=== PATIENT | male | born 1945 | race Two or more races ===

== ENCOUNTER 2019-09-02 10:14 | Day surgery (SDC) | payer MEDICARE, BC ==
[2019-09-02] VITALS (12 sets, daily range): BP systolic 110–150; BP diastolic 55–70
[~2019-09-02] VITALS: Ht 160 cm; Wt 88.5 kg
[2019-09-02] MEDS ORDERED: MIDAZolam 1mg/ml 10ml vial IV ONE (10:40)
[2019-09-02] MEDS ORDERED: fentaNYL/PF 50MCG/1 ML 2ML syringe IV ONE (10:40)
[2019-09-02] MEDS ORDERED: normal saline 1000ml 1,000 ML IV SCH (10:40)
[2019-09-02] MEDS ORDERED: LANTUS SQ (10:57)
[2019-09-02] MEDS ORDERED: LISI-600 PO (10:57)
[2019-09-02] MEDS ORDERED: SIMV-42 PO (10:57)
[2019-09-02] MEDS ORDERED: METO-539 PO (10:57)
[2019-09-02] MEDS ORDERED: APIX5TAB3 PO (10:57)
[2019-09-02] MEDS ORDERED: INSU100V46 (10:57)
[2019-09-02] MEDS ORDERED: CHL4T (10:57)
[2019-09-02] MEDS ORDERED: METF500T PO (10:57)
[2019-09-02] MEDS ORDERED: PRAZ5CAP PO (10:57)
[2019-09-02] MEDS ORDERED: FLO0.4C PO (10:57)
[2019-09-02] MEDS ORDERED: FAMO20TA8 PO (10:57)
== END 2019-09-02 13:15 | disposition home or self-care (01) ==
LOC: SSTAY O 10:14
PROVIDERS: ATTEND Internal Medicine Interventional Cardiology
DX: I48.91 Unspecified atrial fibrillation (principal); I10 Essential (primary) hypertension; E78.5 Hyperlipidemia, unspecified; E11.59 Type 2 diabetes mellitus with other circulatory complications; Z79.899 Other long term (current) drug therapy; Z79.4 Long term (current) use of insulin; Z98.890 Other specified postprocedural states; Z80.0 Family history of malignant neoplasm of digestive organs; Z88.0 Allergy status to penicillin
CPT/HCPCS: 82948; 92960; 93005; 94760

== ENCOUNTER 2020-08-30 13:19 | Outpatient (CLI) | payer MEDICARE, BC ==
[~2020-08-30 13:19] MED LIST: APIX5TAB3 PO; CHL4T; FAMO20TA8 PO; FLO0.4C PO; INSU100V46; LANTUS SQ; LISI20TA28 PO; METF500T PO; METO-539 PO; PRAZ5CAP PO; SIMV-42 PO
== END 2020-08-30 23:59 | disposition home or self-care (01) ==
LOC: VAS 13:19
PROVIDERS: ATTEND Orthopaedic Surgery
DX: S83.231A Complex tear of medial meniscus, current injury, right knee, initial encounter (principal); S83.271A Complex tear of lateral meniscus, current injury, right knee, initial encounter; M71.21 Synovial cyst of popliteal space [Baker], right knee; X58.XXXA Exposure to other specified factors, initial encounter; Y93.89 Activity, other specified; Y92.89 Other specified places as the place of occurrence of the external cause; Y99.8 Other external cause status
CPT/HCPCS: 93971

== ENCOUNTER 2025-02-12 10:23 | Day surgery (SDC) | payer MEDICARE, BC ==
[~2025-02-12] VITALS: Ht 160 cm; Wt 80.7 kg
[~2025-02-12 10:23] MED LIST changes: -APIX5TAB3 PO; +ASPI-611 PO; +ATOR40TA71 PO; -CHL4T; +EMPA1TAB7; -FAMO20TA8 PO; -FLO0.4C PO; -INSU100V46; +MECO10005 PO; -METF500T PO; +PRAZ2CAP2 PO; +RIVA20TA PO; -SIMV-42 PO; +TAMS-55 PO
[2025-02-12] MEDS ORDERED: normal saline 1000ml 1,000 ML IV SCH (11:00)
[2025-02-12] MEDS ORDERED: fentaNYL/PF 50MCG/1 ML 2ML syringe IV ONE (11:00)
[2025-02-12] MEDS ORDERED: MIDAZolam 1mg/ml 10ml vial IV ONE (11:00)
[2025-02-12 11:15] VITALS: BP 143/68; PULSE 71; RESP 16; TEMP 98.6; O2SAT 96
[2025-02-12 11:31] LABS: MEAN PLATELET VOLUME 7.9 FL (7.4-10.4); RED CELL DISTRIBUTION WIDTH 15.3 % (11.5-14.5)
[2025-02-12 11:41] LABS: APTT 35 SECONDS (22-32); INR 1.2 INR
[2025-02-12 11:49] LABS: CREATININE 0.98 MG/DL (0.60-1.10); TOTAL CARBON DIOXIDE 26.9 MMOL/L (24-32); eCRCL 50 ML/MIN; eGFR 74 ML/MIN
[2025-02-12] MEDS ORDERED: fentaNYL/PF 50MCG/1 ML 2ML syringe ONE (12:19)
[2025-02-12] MEDS ORDERED: midazolam 1 mg/ML 2ml injection ONE (12:19)
[2025-02-12 14:30] VITALS: BP 145/79; PULSE 61; RESP 16; O2SAT 96
[2025-02-12 14:46] VITALS: BP 143/69; PULSE 51; RESP 16; O2SAT 97
[2025-02-12 14:55] VITALS: BP 151/89; PULSE 65; RESP 16; O2SAT 97
--- NOTE | 2025-02-13 10:41 | CARDIOLOGY REPORT ---
APPROVED REPORT EXAM: Focused, limited transesophageal echocardiogram with color flow Doppler Patient Location: [facility] Blood Pressure: 189/93 mmHg Heart Rate: 91 bpm Rhythm: NSR Indications POST WATCHMAN FLX SHAI CLOSURE DEVICE IMPLANTATION FOLLOW UP EVALUATE DEVICE FOR THROMBUS, POSITION, AND SEAL 27 mm WATCHMAN FLX SHAI CLOSURE DEVICE Development Writer is Shahram Sheth MD Previous echo 12/26/24 [facility] 70% EF ; LA appears severely dilated ilntact interatrial septum with (smal l) L to R shunt s/p transseptal puncture by color and spectral Doppler. LEFT VENTRICLE LV appears normal in size and thickness. Overall systolic function appears normal. LVEF is 65-70%. RIGHT VENTRICLE RV appears mildly dilated with normal contractility. ATRIA LA appears severely dilated. Intact interatrial septum with (trivial) L to R shunt s/p transseptal pu ncture by color and spectral Doppler. GREAT VESSELS Descending aorta is normal in caliber. PERICARDIUM There is no pericardial effusion. CONCLUSION LV appears normal in size and thickness. Overall systolic function appears normal. LVEF is 65-70%. RV appears mildly dilated with normal contractility. LA appears severely dilated. Intact interatrial se ptum with (trivial) L to R shunt s/p transseptal puncture by color and spectral Doppler. There is no pericardial effusion. Conclusion LV appears normal in size and thickness. Overall systolic function appears normal. LVEF is 65-70%. RV appears mildly dilated with normal contractility. LA appears severely dilated. Intact interatrial septum with (trivial) L to R shunt s/p transseptal pu ncture by color and spectral Doppler. There is no pericardial effusion.
== END 2025-02-12 15:00 | disposition home or self-care (01) ==
LOC: SSTAY O 10:23
PROVIDERS: ATTEND Student in an Organized Health Care Education/Training Program
DX: I48.91 Unspecified atrial fibrillation (principal); I10 Essential (primary) hypertension; E78.5 Hyperlipidemia, unspecified; E11.9 Type 2 diabetes mellitus without complications; Z86.73 Personal history of transient ischemic attack (TIA), and cerebral infarction without residual deficits; Z79.01 Long term (current) use of anticoagulants; Z79.4 Long term (current) use of insulin; Z79.82 Long term (current) use of aspirin; Z79.899 Other long term (current) drug therapy
CPT/HCPCS: 36415; 80048; 85025; 85610; 85730; 93312; 93325; J2250; J3010; J7030; 99152; 99153